=== PATIENT | female | born 1985 | race Two or more races ===

== ENCOUNTER 2018-05-01 14:52 | Emergency (ER) | payer BC, OTHER ==
[~2018-05-01] VITALS: Ht 160 cm; Wt 53.5 kg
[2018-05-01] MEDS ORDERED: IBUPROFEN 600 MG TABLET PO ONE ×2 (15:30→15:35)
[2018-05-01] MEDS ORDERED: IV NS 0.9% 1,000 ML BAG IV ONE (15:30)
--- NOTE | 2018-05-01 15:35 | NUR ---
BIB SELF COMPLAINING OF LT SIDED FACE PAIN. "THIS STARTED HAPPENING AFTER I SAW MY DENTIST 4 DAYS AGO." NO S/S OF SOB. DENIES CHEST PAIN. AMBULATED TO HOSPITAL BED WITH STABLE GAIT. PT AA/OX4. MOVES ALL EXTREMITIES WELL. NAD. VSS. AWAITING MD ORDERS.
[2018-05-01 15:38] LABS: BASOPHILS # (AUTO) 0.1 /CMM (0.0-0.2); BASOPHILS % (AUTO) 0.9 % (0.0-2.0); EOSINOPHILS % (AUTO) 1.4 % (0.0-6.0); HEMATOCRIT 42 % (33-45); HEMOGLOBIN 14.4 g/dL (11.5-14.8); LYMPHOCYTES # (AUTO) 1.5 /CMM (0.8-4.8); MEAN CORPUSCULAR HEMOGLOBIN 31 PG (26.0-33.0); MEAN CORPUSCULAR HGB CONC 35 g/dl (31.0-36.0); MEAN CORPUSCULAR VOLUME 89 fL (82-100); MONOCYTES # (AUTO) 0.6 /CMM (0.1-1.30); NEUTROPHILS # (AUTO) 6.2 /CMM (1.8-8.9); NEUTROPHILS % (AUTO) 73.7 % (43.0-81.0); PLATELET COUNT (AUTO) 180 /CMM (150-450); RDW COEFFICIENT OF VARIATION 11.4 (11.5-15.0); RED BLOOD CELL COUNT(AUTO) 4.69 MIL/uL (4.0-5.2); WHITE BLOOD COUNT (AUTO) 8.5 K/uL (4.3-11.0)
[2018-05-01 15:48] LABS: CALCIUM, SERUM 9.1 mg/dL (8.5-10.1); CREATININE 0.7 mg/dL (0.6-1.3); POTASSIUM 3.6 mmol/L (3.5-5.1)
--- NOTE | 2018-05-01 17:18 | NUR ---
Patient discharged to home in stable condition. Written and verbal after care instructions given. Patient verbalizes understanding of instruction.IV removed. Catheter intact and site benign. Pressure and 4x4 applied to site. No bleeding noted. PT AMBULATED WITH STEADY GAIT UPON DC
[2018-05-01 17:19] VITALS: BP 134/80
== END 2018-05-01 17:20 | disposition home or self-care (01) ==
LOC: ER 14:57
DX: L03.211 Cellulitis of face (principal)
CPT/HCPCS: 36415; 70487; 80048; 85025; 99285; A4606; J7030 ×2; Z7610

== ENCOUNTER 2018-05-03 22:05 | Emergency (ER) | payer BC ==
[~2018-05-03] VITALS: Ht 160 cm; Wt 52.2 kg
[2018-05-03 22:15] VITALS: BP 132/75
--- NOTE | 2018-05-03 23:08 | NUR ---
pt left without discharge paperowrk. isaac hickman made aware.
== END 2018-05-03 23:11 | disposition home or self-care (01) ==
LOC: ER 22:07
DX: L03.213 Periorbital cellulitis (principal)
CPT/HCPCS: A4606; Z7502; Z7610